=== PATIENT | female | born 1980 | race Two or more races ===

== ENCOUNTER → 2018-08-14 | Outpatient (CLI) | payer OTHER ==
--- NOTE | 2018-08-14 07:38 | MM ---
Reason for exam: screening (asymptomatic). Baseline mammogram. History: Patient is nulliparous. Family history of breast cancer in sister. Physical Findings: Nurse did not find any significant physical abnormalities on exam. MG Screening Mammo w CAD Bilateral CC and MLO view(s) were taken. The breast tissue is extremely dense which could obscure a lesion on mammography. Finding: There are typically benign diffuse/scattered fine calcifications in both breasts. There is no discrete abnormality. These results were verbally communicated with the patient and result sheet given to the patient on 08/14/18. ASSESSMENT: Benign, BI-RAD 2 RECOMMENDATION: Routine screening mammogram of both breasts at age 39.
== END ==
LOC: RADMAMWWP 06:50
PROVIDERS: ATTEND Family Medicine
DX: Z12.31 Encounter for screening mammogram for malignant neoplasm of breast (principal); Z80.3 Family history of malignant neoplasm of breast
CPT/HCPCS: 77067

== ENCOUNTER → 2019-09-19 | Outpatient (CLI) | payer OTHER ==
[2019-09-19 10:15] LABS: Basophils # (A) 0.1 k/uL (0-0.2); Basophils % (A) 1 %; Eosinophils # (A) 0.6 k/uL (0-0.7); Eosinophils % (A) 7 %; HGB 14.4 gm/dL (11.4-16.0); Lymphocytes % (A) 25 %; MCH 27.9 pg (25.0-35.0); MCHC 31.3 g/dL (31.0-37.0); MCV 89.2 fL (80.0-100.0); Mean Platelet Volume 11.9; Monocytes # (A) 0.3 k/uL (0-1.0); Monocytes % (A) 4 %; Neutrophils # (A) 5.1 k/uL (1.3-7.7); Neutrophils % (A) 62 %; Platelet Count 175 k/uL (150-450); RBC 5.16 m/uL (3.80-5.40); RDW 13.5 % (11.5-15.5); WBC 8.2 k/uL (3.8-10.6)
[2019-09-19 17:19] LABS: LDL Cholesterol, Direct 125.2 mg/dL (0.0-129.0)
[2019-09-19 17:21] LABS: African American GFR (CKD) 133.1 (60.0-200.0); Albumin 4.3 g/dL (3.80-4.90); Albumin/Globulin Ratio 1.72 (1.60-3.17); BUN/Creat Ratio 18.33 Ratio (12.00-20.00); Calcium 9.7 mg/dL (8.7-10.3); Globulin 2.5 g/dL (1.6-3.3); Non-African American GFR(CKD) 114.8 (60.0-200.0); Potassium 4.4 mmol/L (3.5-5.5); Total Bilirubin 0.9 mg/dL (0.3-1.2); Total Protein 6.8 g/dL (6.2-8.2)
[2019-09-19 18:06] LABS: Hepatitis A Antibody IgM Non-Reactive (Non-Reactive); Hepatitis B Core IgM Non-Reactive (Non-Reactive); Hepatitis B Surface Antigen Non-Reactive (Non-Reactive); Hepatitis C IgG Antibody Non-Reactive (Non-Reactive)
== END | disposition home or self-care (01) ==
LOC: LABWHC1 09:23
PROVIDERS: ATTEND Family Medicine
DX: Z00.00 Encounter for general adult medical examination without abnormal findings (principal); R74.0 Nonspecific elevation of levels of transaminase and lactic acid dehydrogenase [LDH]; Z13.220 Encounter for screening for lipoid disorders; Z13.228 Encounter for screening for other metabolic disorders
CPT/HCPCS: 36415; 80053; 80074; 82306; 82607; 83721; 84443; 84478; 85025

== ENCOUNTER → 2019-10-10 | Outpatient (CLI) | payer OTHER ==
--- NOTE | 2019-10-10 14:49 | MM ---
Reason for exam: additional evaluation requested from prior study. Last mammogram was performed 1 year and 2 months ago. History: Patient is nulliparous. Family history of breast cancer in sister at age 35. Physical Findings: Nurse Summary: 0.5cm nodule in the left breast at 2 o'clock (nurse TM). MG Diagnostic Mammo w CAD EMERITA Bilateral CC and MLO view(s) were taken. Prior study comparison: August 14, 2018, bilateral MG screening mammo w CAD. The breast tissue is extremely dense which could obscure a lesion on mammography. Finding: There are round, regional calcifications in the upper quadrant of the right breast. There is no discrete abnormality including area of concern in the left breast. These results were verbally communicated with the patient and result sheet given to the patient on 10/10/19. ASSESSMENT: Incomplete: need additional imaging evaluation, BI-RAD 0 RECOMMENDATION: Ultrasound of the left breast.
--- NOTE | 2019-10-10 14:52 | USB ---
Reason for exam: additional evaluation requested from abnormal screening. History: Patient is nulliparous. Family history of breast cancer in sister at age 35. US Breast Limited LT Left limited breast ultrasound including focal area of concern, retroareolar and axilla demonstrates a 10 x 6 x 9mm oval, cystic lesion at 3 o'clock, a 9 x 4 x 8mm oval, cystic lesion at 3 o'clock, a 10 x 8 x 10mm oval, mixed lesion at 3 o'clock for which a cyst aspiration or biopsy is recommended and a 9 x 9 x 12mm oval, hypoechoic lesion at 12 o'clock for which a biopsy is recommended. These results were verbally communicated with the patient and result sheet given to the patient on 10/10/19. ASSESSMENT: Suspicious, BI-RAD 4 RECOMMENDATION: Aspiration and ultrasound core biopsy of the left breast. Called Dr. Ferrell's office with mammographic findings. Biopsy scheduled for 10/18/19 at 10:30. PRELIMINARY REPORT CALLED AND FAXED TO DR. FERRELL ON 10/10/19.
== END | disposition home or self-care (01) ==
LOC: RADMAMWWP 08:36
PROVIDERS: ATTEND Family Medicine
DX: N63.0 Unspecified lump in unspecified breast (principal); R92.8 Other abnormal and inconclusive findings on diagnostic imaging of breast
CPT/HCPCS: 77066

== ENCOUNTER → 2019-10-18 | Day surgery (SDC) | payer OTHER ==
[2019-10-18 10:01] VITALS: BP 160/103; PULSE 58; RESP 16; TEMP 97.5
== END ==
LOC: RADUSWWP 09:03
PROVIDERS: ATTEND Family Medicine
DX: N63.42 Unspecified lump in left breast, subareolar (principal); R92.8 Other abnormal and inconclusive findings on diagnostic imaging of breast; Z53.8 Procedure and treatment not carried out for other reasons

== ENCOUNTER → 2019-10-29 | Day surgery (SDC) | payer OTHER ==
[2019-10-29 12:31] VITALS: RESP 16; TEMP 97.8
[2019-10-29 13:53] VITALS: BP 120/77; PULSE 56
--- NOTE | 2019-10-29 14:01 | USB ---
Ultrasound-guided core biopsy left breast and left breast cyst aspiration. HISTORY: Solid lesion left 12:00 and complex cyst left 3:00 The lesions in question within the left breast were targeted by the undersigned. Procedure was performed by the undersigned. Informed consent was obtained and all of the patients questions were answered. The standard sterile technique was utilized and appropriate local anesthesia was obtained with 1% lidocaine at each location. Ultrasound vacuum assisted device was advanced and multiple core samples were obtained from the solid left 12:00 lesion and sent to pathology for interpretation. Microclip marker was deployed at the site of biopsy. In addition an 18-gauge needle was introduced into the complex cyst at the left 3:00 lesion and 0.5 cc of turbid fluid was aspirated. The cyst is no longer present. Microclip Was also deployed at this site. Post procedural mammogram demonstrates appropriate deployment of radiopaque clip markers. The patient tolerated the procedure well and left the department in stable condition. Pathology results are pending. IMPRESSION: Successful ultrasound core biopsy left 12:00 lesion and successful ultrasound guided cyst aspiration left 3:00 lesion breast with pathology/cytology results pending. Pathology Results: Benign LEFT BREAST SITE A, NEEDLE ASPIRATION: Metaplastic apocrine cells and very degenerated ductal cells in a background of scattered slight inflammation. LEFT BREAST SITE B, GUIDED NEEDLE CORE BIOPSY: Fibroadenoma. Recommendation Follow up mammogram of the left breast in 6 months. JADA
== END ==
LOC: RADUSWWP 12:01
PROVIDERS: ATTEND Family Medicine
DX: D24.2 Benign neoplasm of left breast (principal)
CPT/HCPCS: 88305; 88173; 77065; 76942; 19000; 19083; A4648; J2001

== ENCOUNTER → 2020-06-11 | Outpatient (CLI) | payer OTHER ==
--- NOTE | 2020-06-12 08:59 | MM ---
Reason for exam: follow-up at short interval from prior study. Last mammogram was performed 7 months ago. History: Patient is nulliparous. Family history of breast cancer in sister at age 35. Benign US breast aspiration single LT of the left breast, October 29, 2019. Benign US biopsy breast VAD LT of the left breast, October 29, 2019. Physical Findings: Nurse did not find any significant physical abnormalities on exam. MG Diagnostic Mammo LT w CAD CC and MLO view(s) were taken of the left breast. Prior study comparison: October 29, 2019, left breast MG diagnostic mammo LT wo CAD. October 10, 2019, bilateral MG diagnostic mammo w CAD EMERITA. The breast tissue is heterogeneously dense. This may lower the sensitivity of mammography. Previous mammotome biopsy in the left breast. No significant new findings when compared with previous films. These results were verbally communicated with the patient and result sheet given to the patient on 06/11/20. ASSESSMENT: Benign, BI-RAD 2 RECOMMENDATION: Routine screening mammogram of both breasts in 5 months. Back on schedule for September 2020.
--- NOTE | 2020-06-12 09:06 | USB ---
Reason for exam: follow-up at short interval from prior study. History: Patient is nulliparous. Family history of breast cancer in sister at age 35. Benign US breast aspiration single LT of the left breast, October 29, 2019. Benign US biopsy breast VAD LT of the left breast, October 29, 2019. US Breast LT Left complete breast ultrasound includes all four quadrants, the retroareolar region and axilla. Finding demonstrates a 10 x 9 x 11mm oval, hypoechoic lesion at 12 o'clock previous biopsy site, a 11 x 7 x 11mm oval, cystic lesion at 2 o'clock, a 13 x 5 x 8mm cystic lesion at 3 o'clock and a 8 x 5 x 10mm cystic lesion at 10 o'clock. Innumerable cystic areas visualized. These results were verbally communicated with the patient and result sheet given to the patient on 06/11/20. ASSESSMENT: Benign, BI-RAD 2 RECOMMENDATION: Routine screening mammogram of both breasts in 5 months. Back on schedule for September 2020.
== END | disposition home or self-care (01) ==
LOC: RADMAMWWP 14:29
PROVIDERS: ATTEND Family Medicine
DX: R92.8 Other abnormal and inconclusive findings on diagnostic imaging of breast (principal); R92.2 Inconclusive mammogram; Z98.890 Other specified postprocedural states
CPT/HCPCS: 77065

== ENCOUNTER → 2020-11-18 | Outpatient (CLI) | payer OTHER ==
[2020-11-18 23:54] LABS: Basophils # (A) 0.04 X 10*3/uL (0.00-0.10); Basophils % (A) 0.6 %; Eosinophils # (A) 0.38 X 10*3/uL (0.04-0.35); Eosinophils % (A) 5.4 %; HCT 43.3 % (37.2-46.3); HGB 13.6 g/dL (12.0-15.0); Lymphocytes # (A) 1.85 X 10*3/uL (0.90-5.00); Lymphocytes % (A) 26.2 %; MCH 27.5 pg (27.0-32.0); MCHC 31.4 g/dL (32.0-37.0); MCV 87.7 fL (80.0-97.0); Mean Platelet Volume 13.4 fL (9.5-12.2); Monocytes # (A) 0.53 X 10*3/uL (0.20-1.00); Monocytes % (A) 7.5 %; Neutrophils # (A) 4.23 X 10*3/uL (1.80-7.70); Platelet Count 207 X 10*3/uL (140-440); RBC 4.94 X 10*6/uL (4.10-5.20); WBC 7.05 X 10*3/uL (4.50-10.00)
[2020-11-19 01:00] LABS: Hemoglobin A1C 5.6 % (4.0-6.0)
[2020-11-19 03:41] LABS: African American GFR (CKD) 125.6 (60.0-200.0); Albumin 4.3 g/dL (3.80-4.90); Albumin/Globulin Ratio 1.59 (1.60-3.17); Anion Gap 9.1 mmol/L (4.00-12.00); BUN/Creat Ratio 15.71 Ratio (12.00-20.00); Calcium 9.5 mg/dL (8.7-10.3); Carbon Dioxide 24.9 mmol/L (21.6-31.8); Chol/HDL Ratio 3.57; Globulin 2.7 g/dL (1.6-3.3); LDL Cholesterol,Calculated 97.4 mg/dL (0.0-131.0); Non-African American GFR(CKD) 108.4 (60.0-200.0); Potassium 4.3 mmol/L (3.5-5.5); Total Bilirubin 0.9 mg/dL (0.2-1.2); VLDL Calculation 20.6 mg/dL (5.00-40.00)
== END | disposition home or self-care (01) ==
LOC: LABWHC1 08:47
PROVIDERS: ATTEND Family Medicine
DX: Z00.00 Encounter for general adult medical examination without abnormal findings (principal); Z13.220 Encounter for screening for lipoid disorders; N94.10 Unspecified dyspareunia; R82.998 Other abnormal findings in urine
CPT/HCPCS: 36415; 80053; 80061; 82306; 82607; 83036; 84443; 85025

== ENCOUNTER → 2020-12-17 | Outpatient (CLI) | payer OTHER ==
--- NOTE | 2020-12-18 12:16 | MM ---
Reason for exam: additional evaluation requested from prior study. Last mammogram was performed 6 months ago. History: Patient is nulliparous. Family history of breast cancer in sister at age 35. Benign US breast aspiration single LT of the left breast, October 29, 2019. Benign US biopsy breast VAD LT of the left breast, October 29, 2019. Physical Findings: Nurse did not find any significant physical abnormalities on exam. MG Diagnostic Mammo w CAD EMERITA Bilateral CC and MLO view(s) were taken. CV view(s) were taken of the right breast. Prior study comparison: June 11, 2020, left breast MG diagnostic mammo LT w CAD. October 29, 2019, left breast MG diagnostic mammo LT wo CAD. The breast tissue is heterogeneously dense. This may lower the sensitivity of mammography. Previous mammotome biopsy in the left breast x 2. Underlying partially obscured nodularity on the left. Ultrasound recommended. These results were verbally communicated with the patient and result sheet given to the patient on 12/17/20. ASSESSMENT: Incomplete: need additional imaging evaluation, BI-RAD 0 RECOMMENDATION: Ultrasound of the left breast.
--- NOTE | 2020-12-18 12:18 | USB ---
Reason for exam: additional evaluation requested from abnormal screening. History: Patient is nulliparous. Family history of breast cancer in sister at age 35. Benign US breast aspiration single LT of the left breast, October 29, 2019. Benign US biopsy breast VAD LT of the left breast, October 29, 2019. US Breast LT Left complete breast ultrasound includes all four quadrants, the retroareolar region and axilla. Finding demonstrates a 9 x 7 x 10mm oval, solid lesion at 12 o'clock, benign fibroadenoma previously biospied, a 12 x 7 x 12mm oval, cystic lesion at 1 o'clock and a 13 x 6 x 13mm cystic leison at 2 o'clock. Multiple additional smaller cysts are present. These results were verbally communicated with the patient and result sheet given to the patient on 12/17/20. ASSESSMENT: Probably benign, BI-RAD 3 RECOMMENDATION: Follow-up diagnostic mammogram of both breasts in 1 year. Given family history and the patient's breast complexity.
== END | disposition home or self-care (01) ==
LOC: RADMAMWWP 13:20
PROVIDERS: ATTEND Family Medicine
DX: R92.2 Inconclusive mammogram (principal); Z80.3 Family history of malignant neoplasm of breast; D24.2 Benign neoplasm of left breast; N60.02 Solitary cyst of left breast
CPT/HCPCS: 77066

== ENCOUNTER → 2021-03-19 | Outpatient (CLI) | payer OTHER ==
[~2021-03-19] MED LIST: BAMLANIVIMAB (EUA) 700 MG, ETESEVIMAB (EUA) 1,400 MG in SODIUM CHLORIDE 0.9% 50 ML IVPB NR; SODIUM CHLORIDE 0.9% 50 ML IVPB NR; SODIUM CHLORIDE 0.9% 500 ML 500 ML in EMPTY BAG 1 BAG IV PRN
[2021-03-19 11:10] VITALS: BP 154/97; PULSE 68; RESP 16; TEMP 97.9
== END ==
LOC: PROCWHC3 11:04
PROVIDERS: ATTEND Family Medicine
DX: U07.1 COVID-19 (principal); E66.9 Obesity, unspecified; Z68.28 Body mass index [BMI] 28.0-28.9, adult; Z87.891 Personal history of nicotine dependence
CPT/HCPCS: 96360; J3490; M0245

== ENCOUNTER → 2021-04-08 | Outpatient (CLI) | payer OTHER ==
[2021-04-08 16:14] LABS: Basophils # (A) 0.05 X 10*3/uL (0.00-0.10); Basophils % (A) 0.6 %; Eosinophils # (A) 0.48 X 10*3/uL (0.04-0.35); Eosinophils % (A) 5.6 %; HCT 44.4 % (37.2-46.3); HGB 14.1 g/dL (12.0-15.0); Lymphocytes # (A) 2.04 X 10*3/uL (0.90-5.00); Lymphocytes % (A) 23.9 %; MCH 27.3 pg (27.0-32.0); MCHC 31.8 g/dL (32.0-37.0); Mean Platelet Volume 13.6 fL (9.5-12.2); Monocytes # (A) 0.78 X 10*3/uL (0.20-1.00); Monocytes % (A) 9.1 %; Neutrophils # (A) 5.18 X 10*3/uL (1.80-7.70); Neutrophils % (A) 60.6 %; Platelet Count 199 X 10*3/uL (140-440); RBC 5.16 X 10*6/uL (4.10-5.20); RDW 14.2 % (11.5-14.5); WBC 8.55 X 10*3/uL (4.50-10.00)
[2021-04-08 16:41] LABS: African American GFR (CKD) 132.5 (60.0-200.0); Albumin 4.5 g/dL (3.8-4.9); Albumin/Globulin Ratio 1.8 (1.60-3.17); Anion Gap 12.4 mmol/L (10.00-18.00); BUN/Creat Ratio 15.3 Ratio (12.00-20.00); Blood Urea Nitrogen 8.9 mg/dL (9.0-27.0); C Reactive Protein 0.4 mg/dL (0.00-0.80); Calcium 9.5 mg/dL (8.7-10.3); Carbon Dioxide 22.2 mmol/L (20.0-27.5); Globulin 2.5 g/dL (1.6-3.3); Non-African American GFR(CKD) 114.3 (60.0-200.0); Potassium 4.2 mmol/L (3.5-5.5); Total Bilirubin 0.7 mg/dL (0.30-1.20)
[2021-04-08 17:02] LABS: Erythrocyte Sedimentation Rate 13 mm/Hr (0-20)
== END | disposition home or self-care (01) ==
LOC: LABWHC1 10:55
PROVIDERS: ATTEND Family Medicine
DX: I10 Essential (primary) hypertension (principal); R07.9 Chest pain, unspecified; F43.22 Adjustment disorder with anxiety
CPT/HCPCS: 36415; 80053; 82550; 83615; 84443; 84484; 85025; 85379; 85652; 86140

== ENCOUNTER → 2021-04-13 | Outpatient (CLI) | payer OTHER ==
--- NOTE | 2021-04-13 17:33 | ECHOF ---
Referral Reason:R07.9 chest pain MEASUREMENTS -------- HEIGHT: 154.9 cm WEIGHT: 74.8 kg BP: RVIDd: 2.0 cm (< 3.3) IVSd: 1.0 cm (0.6 - 1.1) LVIDd: 4.3 cm (3.9 - 5.3) LVPWd: 1.2 cm (0.6 - 1.1) IVSs: 1.6 cm LVIDs: 1.7 cm LVPWs: 2.0 cm Ao Diam: 3.2 cm (2.0 - 3.7) AV Cusp: 2.0 cm (1.5 - 2.6) LA Diam: 3.1 cm (2.7 - 3.8) MV EXCURSION: 13.883 mm (> 18.000) MV EF SLOPE: 70 mm/s (70 - 150) EPSS: 0.9 cm MV E J Luis: 0.86 m/s MV DecT: 215 ms MV A J Luis: 0.45 m/s MV E/A Ratio: 1.93 AR PHT: 470 ms RAP: 5.00 mmHg RVSP: 17.25 mmHg FINDINGS -------- This was a technically adequate study. The left ventricular size is normal. Left ventricular wall thickness is normal. Overall left vent ricular systolic function is normal with, an EF between 55 - 60 %. The right ventricle is normal in size. The left atrial size is normal. The right atrial size is normal. Interatrial and interventricular septum intact. The aortic valve is trileaflet and appears structurally normal. There is mild aortic regurgitation. The mitral valve is normal. There is trace mitral regurgitation. The tricuspid valve appears structurally normal. Trace tricuspid regurgitation present. Right love tricular systolic pressure is normal at < 35 mmHg. There is no pulmonic regurgitation present. The aortic root size is normal. Normal inferior vena cava with normal inspiratory collapse consistent with estimated right atrial pre ssure of 5 mmHg. There is no pericardial effusion. CONCLUSIONS -------- 1. The left ventricular size is normal. 2. Left ventricular wall thickness is normal. 3. Overall left ventricular systolic function is normal with, an EF between 55 - 60 %. 4. There is mild aortic regurgitation. 5. There is trace mitral regurgitation. 6. Trace tricuspid regurgitation present. 7. There is no pericardial effusion. [employer]: Lizbeth Payne RDCS
== END | disposition home or self-care (01) ==
LOC: RADECHMAIN 14:26
PROVIDERS: ATTEND Family Medicine
DX: I08.3 Combined rheumatic disorders of mitral, aortic and tricuspid valves (principal)
CPT/HCPCS: 93306

== ENCOUNTER → 2021-08-11 | Outpatient (CLI) | payer OTHER ==
--- NOTE | 2021-08-11 11:13 | XR ---
EXAMINATION TYPE: XR shoulder complete RT DATE OF EXAM: 08/11/2021 COMPARISON: None available INDICATION: Neck strain TECHNIQUE: 3 views of the right shoulder FINDINGS: Slight gapping at the acromioclavicular joint. Tiny inferior glenohumeral osteophytosis. No definite fracture line identified. No humeral head dislocation or significant subluxation. No signs of rotator cuff calcific tendinitis. Maintained acromiohumeral distance. IMPRESSION: No definite right shoulder fracture or dislocation. Incidental findings as described above.
--- NOTE | 2021-08-11 11:17 | XR ---
EXAMINATION TYPE: XR cervical spine comp DATE OF EXAM: 08/11/2021 COMPARISON: None available INDICATION: Neck strain TECHNIQUE: 7 views of the cervical spine FINDINGS: Mild retrolisthesis of C5 over C6. No definite vertebral body collapse or acute displaced fracture. D egenerative changes at C5-6 and C6-7 levels with opposing endplate osteophytosis. Degenerated C5-6 di sc. Multilevel mild uncovertebral osteoarthropathy most evident at C5-6 and C6-7 levels. Bilateral C6-7 n eural foraminal stenosis. Unremarkable prevertebral soft tissue. Grossly unremarkable atlantoaxial ar ticulations. IMPRESSION: Degenerative changes of the cervical spine as detailed above. Further MRI assessment can be considere d.
== END | disposition home or self-care (01) ==
LOC: RADXRMAIN 09:44
PROVIDERS: ATTEND Emergency Medicine
DX: M47.812 Spondylosis without myelopathy or radiculopathy, cervical region (principal)
CPT/HCPCS: 72050

== ENCOUNTER → 2021-08-25 | Outpatient (CLI) | payer OTHER ==
--- NOTE | 2021-08-26 00:46 | MR ---
EXAMINATION TYPE: MR shoulder RT wo con DATE OF EXAM: 08/25/2021 COMPARISON: None HISTORY: Right shoulder pain and limited movement due to work related injury 3-4 weeks ago Multiplanar multi echo imaging of the right shoulder without contrast. There is mild shoulder joint effusion. Subscapularis tendon is intact. Biceps tendon is intact. There is slight thickening and increased signal in the supraspinatus tendon. No evidence of full-thickness tear but there is mild subdeltoid effusion. The AC joint is intact. The glenoid joy appear intact. The infraspinatus tendon is intact. IMPRESSION: Mild shoulder joint effusion and subdeltoid effusion consistent with some synovitis. Supraspinatus te ndon thickening and mild edema consistent with tendinitis. No full-thickness tear.
== END | disposition home or self-care (01) ==
LOC: RADMRIMAIN 21:29
PROVIDERS: ATTEND Emergency Medicine
DX: M25.411 Effusion, right shoulder (principal); M65.811 Other synovitis and tenosynovitis, right shoulder; M77.8 Other enthesopathies, not elsewhere classified; M54.2 Cervicalgia

== ENCOUNTER → 2021-11-30 | Outpatient (CLI) | payer OTHER ==
--- NOTE | 2021-11-30 11:36 | US ---
EXAMINATION TYPE: US transvaginal DATE OF EXAM: 11/30/2021 COMPARISON: NONE CLINICAL HISTORY: N92.4 PERIMENOPAUSAL MENORRHAGIA. Pt states abnormal menses last 3 months TECHNIQUE: Transvaginal (TV). Transvaginal sonographic images of the pelvis were acquired. Date of LMP: 2 weeks ago EXAM MEASUREMENTS: Uterus: 7.7 x 4.4 x 5.1 cm Endometrial Stripe: 0.9 cm Right Ovary: 4.1 x 3.6 x 2.9 cm Left Ovary: 3.1 x 2.6 x 1.8 cm 1. Uterus: Retroverted , fibroid posterior uterine body= 3.1 x 3.1 x 3.4 cm 2. Endometrium: wnl 3. Right Ovary: Small cyst= 2.0 x 1.7 x 2.7 cm 4. Left Ovary: wnl 5. Bilateral Adnexa: wnl 6. Posterior cul-de-sac: wnl IMPRESSION: 1. Uterine fibroid, Partially exophytic. 2. Right ovarian cyst. Follow-up in 6 weeks or following the next normal menstrual period is recommen ded.
== END | disposition home or self-care (01) ==
LOC: RADUSWWP 10:56
PROVIDERS: ATTEND Family Medicine
DX: D25.9 Leiomyoma of uterus, unspecified (principal); N83.201 Unspecified ovarian cyst, right side
CPT/HCPCS: 76830

== ENCOUNTER → 2022-03-17 | Outpatient (CLI) | payer OTHER ==
--- NOTE | 2022-03-17 09:38 | US ---
EXAMINATION TYPE: US transvaginal DATE OF EXAM: 03/17/2022 COMPARISON: NONE CLINICAL HISTORY: 41-year-old female N83.291 OVARIAN CYST RIGHT SIDE. H/o ovarian cysts TECHNIQUE: TV. Transvaginal sonographic images Date of LMP: 02-11-2022, pending this months FINDINGS: EXAM MEASUREMENTS: Uterus: 7.5 x 5.1 x 4.5 cm Endometrial Stripe: 1.6 cm Right Ovary: 3.1 x 1.8 x 2.1 cm Left Ovary: 3.3 x 2.1 x 2.0 cm 1. Uterus: Retroverted 3.1 x 3.3 x 3.5cm right anterior uterine body fibroid. This partially intramu ral and partially subserosal. Previously measured 3.4 cm. 2. Endometrium: Thickening to the upper limits of normal. 3. Right Ovary: follicles seen, wnl 4. Left Ovary: follicles seen, wnl 5. Bilateral Adnexa: wnl 6. Posterior cul-de-sac: wnl IMPRESSION: 1. Retroverted uterus with redemonstrated prominent 3.5 cm right anterior uterine body focal fibroid. This is partially subserosal and partially intramural. Previously measured 3.4 cm. 2. Endometrial stripe thickening to the upper limits of normal at 1.6 cm. Fissure versus findings due to the late secretory phase of the menstrual cycle. 3. Normal follicular change of the ovaries. No dominant cyst is identified.
== END | disposition home or self-care (01) ==
LOC: RADUSWWP 06:47
PROVIDERS: ATTEND Family Medicine
DX: D25.9 Leiomyoma of uterus, unspecified (principal); R93.89 Abnormal findings on diagnostic imaging of other specified body structures
CPT/HCPCS: 76830

== ENCOUNTER → 2023-03-01 | Outpatient (CLI) | payer OTHER ==
--- NOTE | 2023-03-01 08:07 | MM ---
Reason for Exam: Clinical finding. Last mammogram was performed 2 year(s) and 3 month(s) ago. Indicated Problems: Lump or thickening of the right side for 1 Week(s). Patient History: Menarche at age 12. Patient has no children. 10/29/2019, Benign Cyst Aspiration on the left side. 10/29/2019, Benign Core Biopsy on the left side. Sister had breast cancer, age 35. Risk Values: Micheline 5 year model risk: 2.4%. NCI Lifetime model risk: 26.4%. Prior Study Comparison: 08/14/2018 Bilateral Screening Mammogram, [facility]. 10/10/2019 Bilateral Diagnostic Mammogram, [facility]. 10/10/2019 Left Diagnostic Ultrasound, [facility]. 10/29/2019 Left Diagnostic Mammogram, [facility]. 06/11/2020 Left Diagnostic Mammogram, [facility]. 06/11/2020 Left Diagnostic Ultrasound, [facility]. 12/17/2020 Bilateral Diagnostic Mammogram, [facility]. 12/17/2020 Left Diagnostic Ultrasound, [facility] Tissue Density: The breast tissue is extremely dense which could obscure a lesion on mammography. Findings: Analyzed By CAD. No new suspicious mass of the left breast. 2 biopsy clips within the left breast. Benign calcification within the left breast. No suspicious group of calcifications within either breast. There is a partially obscured 4.5 cm oval mass within the upper outer right breast 3 cm from the nipple. This is at site of palpable marker. Overall Assessment: Incomplete: need additional imaging evaluation, BI-RAD 0 Management: Diagnostic Breast Ultrasound of the right breast. A clinical breast exam by your physician is recommended on an annual basis and results should be correlated with mammographic findings. This exam should not preclude additional follow-up of suspicious palpable abnormalities. Results were given to the patient verbally at the time of exam. Note on Micheline scores and lifetime risk: 1. A Micheline score greater than 3% is considered moderate risk. If this is the case, consider specialist referral to assess eligibility for a risk reducing agent. If overall lifetime risk for the development of breast cancer is 20% or higher, the patient may qualify for future screening with alternating mammogram and breast MRI. Electronically signed and approved by: Brian Gates D.O.
--- NOTE | 2023-03-01 08:34 | USB ---
Reason for Exam: Clinical finding. Patient History: Menarche at age 12. Patient has no children. 10/29/2019, Benign Cyst Aspiration on the left side. 10/29/2019, Benign Core Biopsy on the left side. Sister had breast cancer, age 35. Risk Values: Micheline 5 year model risk: 2.4%. NCI Lifetime model risk: 26.4%. Technique: Method: Targeted. Prior Study Comparison: 10/29/2019 Left Diagnostic Mammogram, [facility]. 06/11/2020 Left Diagnostic Mammogram, [facility]. 12/17/2020 Bilateral Diagnostic Mammogram, [facility]. Findings: The upper outer quadrant of the right breast, the axilla of the right breast and the retroareolar of the right breast were scanned. Targeted ultrasound of the right breast from 9-12 o'clock with additional evaluation of the nipple and axillary tail was performed. Thin-walled simple cysts identified within the right breast 3 cm from the nipple at 10:00 measuring 3.5 x 2.3 x 3.2 cm. Additional minimal complex cyst with thin septation identified within the right breast at 12:00 4 cm centimeters from the nipple measuring 1.2 x 0.6 x 1.3 cm. No internal color flow. Overall Assessment: Benign, BI-RAD 2 Management: Screening Mammogram of both breasts in 1 year. Right breast cyst at 10:00 is amenable to ultrasound guided aspiration as clinically indicated. A clinical breast exam by your physician is recommended on an annual basis and results should be correlated with mammographic findings. This exam should not preclude additional follow-up of suspicious palpable abnormalities. Results were given to the patient verbally at the time of exam. Electronically signed and approved by: Brian Gates D.O.
== END | disposition home or self-care (01) ==
LOC: RADMAMWWP 07:31
PROVIDERS: ATTEND Family Medicine
DX: N60.01 Solitary cyst of right breast (principal); N63.11 Unspecified lump in the right breast, upper outer quadrant; R92.343 Mammographic extreme density, bilateral breasts; Z80.3 Family history of malignant neoplasm of breast
CPT/HCPCS: 77062; 77066

== ENCOUNTER → 2023-04-13 | Outpatient (CLI) | payer OTHER ==
[2023-04-13 10:28] VITALS: BP 132/89; PULSE 61; RESP 18; TEMP 97.9
--- NOTE | 2023-04-13 10:37 | P.GSHP ---
History of Present Illness H&P Date: 04/13/23 Chief Complaint: pain right breast Hortensia is a 42 year old [place] female seen in consultation for DR. Ferrell regarding right breast pain. She had a bilateral mammogram on 03-01-23 which led to an ultrasound of the right breast. In the right breast multiple simple appearing cyst were noted. This was BIRAD 2. She complains of pain in her right breast near the nipple area and extending to the upper outer quadrant. It occurs periodically. Last week it occurred approximately 3 days in a row. It does not occur every day. She does not relate anything to make it better or worse. She has had needle biopsies in the left breast with drainage of cyst these were all benign. She can feel a lump in her right breast. This is been present for approximately 2 months. It has not changed in size. She is not complaining of any skin changes or nipple discharge. Her periods are irregular. The swelling does not change with her periods. Caffeine: coffee daily 20 oz nicotine: none stopped 20 years ago chocolate: occasional BCP: none hormones: none Family History: maternal 1/2 sister: breast Hormonal History: menarche: 12 G0 periods irregular since started Surgical History: none Medical History: HTN SociaL History: Nicotine: Negative Alcohol: Occasional Drugs: none - Constitutional Constitutional: Reports sweats, Denies chills, Denies fever - EENT Eyes: denies blurred vision, denies pain Ears: right: tinnitus, deny: decreased hearing Ears, nose, mouth and throat: Reports headache - Breasts Breasts: bilateral: as per HPI - Cardiovascular Cardiovascular: Denies chest pain, Denies shortness of breath - Respiratory Respiratory: Denies cough, Denies 7 - Gastrointestinal Gastrointestinal: Denies abdominal pain, Denies diarrhea, Denies nausea, Denies vomiting - Genitourinary (Female) Genitourinary: Denies dysuria, Denies hematuria - Menstruation Menstruation: Reports as per HPI - Musculoskeletal Musculoskeletal: Denies myalgias - Integumentary Integumentary: Denies pruritus, Denies rash - Neurological Neurological: Denies numbness, Denies weakness - Psychiatric Psychiatric: Denies anxiety, Denies depression - Endocrine Endocrine: Denies fatigue, Denies weight change - Hematologic/Lymphatic Comment: none - Allergic/Immunologic Comment: none Allergic/Immunologic: Reports seasonal allergies Past Medical History Past Medical History: Hypertension History of Any Multi-Drug Resistant Organisms: None Reported Past Surgical History: No Surgical Hx Reported Past Anesthesia/Blood Transfusion Reactions: No Reported Reaction Past Psychological History: No Psychological Hx Reported Smoking Status: Former smoker Past Alcohol Use History: Occasional Past Drug Use History: None Reported Medications and Allergies Home Medications Medication Instructions Recorded Confirmed Type Ibuprofen 800 mg PO DAILY PRN 04/13/23 04/13/23 History lisinopriL [Zestril] 10 mg PO DAILY 04/13/23 04/13/23 History Allergies Allergy/AdvReac Type Severity Reaction Status Date / Time No Known Allergies Allergy Verified 04/13/23 09:57 Surgical - Exam Vital Signs Temp Pulse Resp BP Pulse Ox 97.9 F 61 18 132/89 95 04/13/23 10:00 04/13/23 10:00 04/13/23 10:00 04/13/23 10:00 04/13/23 10:00 - General no distress - Eyes normal ocular movement - Neck trachea midline - Respiratory normal respiratory effort, clear to auscultation - Cardiovascular Heart Sounds: normal: S1, S2 - Integumentary normal turgor - Neurologic no disoriented, no combative - Musculoskeletal normal gait - Psychiatric oriented to time, oriented to person, oriented to place, speech is normal, memory intact Breast Exam: BRA: 36C Inspection: bilateral grade 2 ptosis Ablation: Right breast: Multiple positional exam at approximately the 12 o'clock position towards the upper outer quadrant that appears to be about 2-1/2-3 cm smooth- walled lesion, no other dominant masses or nodules of concern the breasts are very dense Axilla: No adenopathy of concern Left breast: Multiple positional exam dense breast Left axilla: No adenopathy of concern Results Mammogram and ultrasound personally reviewed Assessment and Plan Assessment: Impression: Right breast pain Cyst right breast Plan: Aspiration of cyst right breast After informed consent. Concern in the right breast was prepped using alcohol a 22-gauge needle on a 20 mL syringe was used to aspirate approximately 4 mL of yellow fluid. This is sent for cytology. There appeared to be complete resolution of the cystic lesion. We have discussed lifestyle modification stopping caffeine Patient will call us if the cyst appears to have come back Repeat right breast ultrasound in 6 months with appointment at that time Patient to follow up sooner any questions or concerns CC: DR. Ferrell
== END ==
LOC: WWCWWP 09:51
PROVIDERS: ATTEND Surgery
DX: N60.01 Solitary cyst of right breast (principal); N64.4 Mastodynia; I10 Essential (primary) hypertension; Z87.891 Personal history of nicotine dependence; Z79.899 Other long term (current) drug therapy; Z80.3 Family history of malignant neoplasm of breast
CPT/HCPCS: 87070; 87075; 87205

== ENCOUNTER → 2023-12-01 | Outpatient (CLI) | payer OTHER ==
--- NOTE | 2023-12-01 08:42 | USB ---
Reason for Exam: Clinical finding. Patient History: Menarche at age 12. Patient has no children. 10/29/2019, Benign Cyst Aspiration on the left side. 10/29/2019, Benign Core Biopsy on the left side. Sister had breast cancer, age 35. Risk Values: Micheline 5 year model risk: 2.4%. NCI Lifetime model risk: 26.4%. Prior Study Comparison: 06/11/2020 Left Diagnostic Mammogram, [facility]. 12/17/2020 Bilateral Diagnostic Mammogram, [facility]. 03/01/2023 Bilateral MG 3D diag mammo w/cad EMERITA, [facility]. 03/01/2023 Right US breast limited RT, [facility]. Findings: The upper outer quadrant of the right breast, the upper section of the breast of the left breast, the area of palpable concern of the left breast, the axilla of both breasts and the retroareolar of both breasts were scanned. The right breast demonstrates several simple cysts the largest at the 9:00 position 5 cm from the nipple measuring 1.4 x 0.9 cm. Previously noted large cyst that they have the right 10:00 position has resolved or has been drained. There are no solid right-sided breast masses seen. The left breast also demonstrates multiple simple cysts the largest is noted at the 12:00 position measuring 1.4 x 0.7 cm. Solid appearing mass at the left 11:00 position has been sampled previously. Overall Assessment: Benign, BI-RAD 2 Management: Screening Mammogram of both breasts in 4 months. A clinical breast exam by your physician is recommended on an annual basis and results should be correlated with mammographic findings. This exam should not preclude additional follow-up of suspicious palpable abnormalities. Results were given to the patient verbally at the time of exam. Electronically signed and approved by: Reji Garcia M.D. Radiologis
== END | disposition home or self-care (01) ==
LOC: RADUSWWP 07:47
PROVIDERS: ATTEND Family Medicine
DX: N60.12 Diffuse cystic mastopathy of left breast (principal); N60.11 Diffuse cystic mastopathy of right breast; Z80.3 Family history of malignant neoplasm of breast

== ENCOUNTER 2024-03-17 04:42 | Emergency (ER) | payer OTHER ==
--- NOTE | 2024-03-17 05:02 | ED ---
Abdominal Pain HPI - General Source: patient, RN notes reviewed, old records reviewed Mode of arrival: wheelchair Limitations: no limitations - History of Present Illness MD Complaint: abdominal pain, flank pain -: hour(s) Location: L flank Radiation: back, chest Migration to: L flank Severity: severe Severity scale (1-10): 10 Consistency: constant Improves With: nothing Worsens With: nothing Treatments Prior to Arrival: other <Dario Manning - Last Filed: 03/17/24 06:20> <Dario Prado - Last Filed: 03/17/24 08:00> - General Chief Complaint: Abdominal Pain Stated Complaint: L Abd Pain (Refer to Back) Time Seen by Provider: 03/17/24 04:47 - History of Present Illness Initial Comments: This is a 43-year-old female to the ER today. This patient presents today for evaluation in regards to pain severe left flank pain anterior abdominal pain anterior chest pain back pain which started pretty suddenly after getting off a long flight. Patient took a flight to see her family in the [facility]. Severe pain tonight with history of high blood pressure and severely elevated blood pressure (Dario Manning) - Related Data Home Medications Medication Instructions Recorded Confirmed Ibuprofen 800 mg PO DAILY PRN 04/13/23 04/13/23 lisinopriL [Zestril] 10 mg PO DAILY 04/13/23 04/13/23 Allergies Allergy/AdvReac Type Severity Reaction Status Date / Time No Known Allergies Allergy Verified 03/17/24 04:45 Review of Systems ROS Other: All systems not noted in ROS Statement are negative. <Dario Manning - Last Filed: 03/17/24 06:20> ROS Other: All systems not noted in ROS Statement are negative. <Dario Prado - Last Filed: 03/17/24 08:00> ROS Statement: Those systems with pertinent positive or pertinent negative responses have been documented in the HPI. Past Medical History Past Medical History: Hypertension History of Any Multi-Drug Resistant Organisms: None Reported Past Surgical History: No Surgical Hx Reported Past Anesthesia/Blood Transfusion Reactions: No Reported Reaction Past Psychological History: No Psychological Hx Reported Smoking Status: Former smoker Past Alcohol Use History: Occasional Past Drug Use History: None Reported <Dario Manning - Last Filed: 03/17/24 06:20> General Exam Limitations: no limitations General appearance: alert, in no apparent distress, anxious Head exam: Present: atraumatic, normocephalic, normal inspection Eye exam: Present: normal appearance, PERRL, EOMI. Absent: scleral icterus, conjunctival injection, periorbital swelling ENT exam: Present: normal exam, mucous membranes moist Neck exam: Present: normal inspection. Absent: tenderness, meningismus, lymphadenopathy Respiratory exam: Present: normal lung sounds bilaterally. Absent: respiratory distress, wheezes, rales, rhonchi, stridor Cardiovascular Exam: Present: regular rate, normal rhythm, normal heart sounds. Absent: systolic murmur, diastolic murmur, rubs, gallop, clicks GI/Abdominal exam: Present: soft, normal bowel sounds. Absent: distended, tenderness, guarding, rebound, rigid Extremities exam: Present: normal inspection, full ROM, normal capillary refill. Absent: tenderness, pedal edema, joint swelling, calf tenderness Back exam: Present: normal inspection Neurological exam: Present: alert, oriented X3, CN II-XII intact Psychiatric exam: Present: normal affect, normal mood Skin exam: Present: warm, dry, intact, normal color. Absent: rash <Dario Manning - Last Filed: 03/17/24 06:20> Course <Dario Manning - Last Filed: 03/17/24 06:20> Vital Signs 03/17/24 03/17/24 03/17/24 04:45 06:02 06:42 Temperature 97.8 F Pulse Rate 82 69 67 Respiratory 22 18 16 Rate Blood Pressure 171/130 154/99 147/96 O2 Sat by Pulse 96 99 99 Oximetry 03/17/24 07:29 Temperature Pulse Rate Respiratory 16 Rate Blood Pressure 122/85 O2 Sat by Pulse Oximetry - Reevaluation(s) Reevaluation #1: 03/17/24 06:21 Records reviewed (Dario Manning) Reevaluation #4: Was pt. sent in by a medical professional or institution (, PA, ELECTRICITY TRADING ANALYST, urgent care, hospital, or long-term...) When possible be specific @ -no Did you speak to anyone other than the patient for history (EMS, parent, family, police, friend...)? What history was obtained from this source @ -no Did you review nursing and triage notes (agree or disagree)? Why? @ -agree Are old charts reviewed (outside hosp., previous admission, EMS record, old EKG, old radiological studies, urgent care reports/EKG's, long-term records)? Report findings @ -yes Differential Diagnosis (chest pain, altered mental status, abdominal pain women, abdominal pain men, vaginal bleeding, weakness, fever, dyspnea, syncope, headache, dizziness, GI bleed, back pain, seizure, CVA, palpatations, mental health, musculoskeletal)? @ -prior EKG interpreted by me (3pts min.). @ -yes X-rays interpreted by me (1pt min.). @ -yes negative for acute disease CT interpreted by me (1pt min.). @ -no U/S interpreted by me (1pt. min.). @ -no What testing was considered but not performed or refused? (CT, X-rays, U/S, labs)? Why? @ -none What meds were considered but not given or refused? Why? @ -none Did you discuss the management of the patient with other professionals (professionals i.e. , PA, ELECTRICITY TRADING ANALYST, lab, RT, psych nurse, social media content manager, professor of social work, teacher, radio division officer, rehabilitation case coordinator)? Give summary @ -no Was smoking cessation discussed for >3mins.? @ -no Was critical care preformed (if so, how long)? @ -no Were there social determinants of health that impacted care today? How? (Homelessness, low income, unemployed, alcoholism, drug addiction, transportation, low edu. Level, literacy, decrease access to med. care, mcc, rehab)? @ -none Was there de-escalation of care discussed even if they declined (Discuss DNR or withdrawal of care, Hospice)? DNR status @ -no What co-morbidities impacted this encounter? (DM, HTN, Smoking, COPD, CAD, Cancer, CVA, ARF, Chemo, Hep., AIDS, mental health diagnosis, sleep apnea, morbid obesity)? @ -none Was patient admitted / discharged? Hospital course, mention meds given and route, prescriptions, significant lab abnormalities, going to OR and other pertinent info. @ - Undiagnosed new problem with uncertain prognosis? @ -no Drug Therapy requiring intensive monitoring for toxicity (Heparin, Nitro, Insulin, Cardizem)? @ -no Were any procedures done? @ -no Diagnosis/symptom? @ - Acute, or Chronic, or Acute on Chronic? @ -Acute Uncomplicated (without systemic symptoms) or Complicated (systemic symptoms)? @ -Complicated Side effects of treatment? @ -no Exacerbation, Progression, or Severe Exacerbation? @ -exacerbation Poses a threat to life or bodily function? How? (Chest pain, USA, CT, pneumonia, PE, COPD, DKA, ARF, appy, cholecystitis, CVA, Diverticulitis, Homicidal, Suicidal, threat to staff... and all critical care pts) @ -yes (Dario Manning) Reevaluation #5: Differential Chest Pain: Stable Angina, Unstable Angina, STEMI, NSTEMI Aortic Dissection, Pneumothorax, Musculoskeletal, Esophageal Spasm GERD, Cholecystitis, Pancreatitis, Zoster, this is not meant to be an all-inclusive list. MDM differential abdominal (Dario Manning) Medical Decision Making - Lab Data Result diagrams: 03/17/24 05:12 03/17/24 05:12 <Dario Manning - Last Filed: 03/17/24 06:20> - Lab Data Result diagrams: 03/17/24 05:12 03/17/24 05:12 <Dario Prado - Last Filed: 03/17/24 08:00> - Medical Decision Making Was patient admitted / discharged? Hospital course, mention meds given and route, prescriptions, significant lab abnormalities, going to OR and other pertinent info. @ -Dr. Manning signed out the patient to me at [address] scan was interpreted by myself. CT showed no pulmonary embolism and no acute abnormality of the abdomen pelvis. I went back into the room and reevaluated the patient she was sleeping I woke her up she was feeling considerably better. I palpated her abdomen there was no area of tenderness. Undiagnosed new problem with uncertain prognosis? @ -No Drug Therapy requiring intensive monitoring for toxicity (Heparin, Nitro, Insulin, Cardizem)? @ -No Were any procedures done? @ -No Diagnosis/symptom? @ -Abdominal pain Acute, or Chronic, or Acute on Chronic? @ -Default Uncomplicated (without systemic symptoms) or Complicated (systemic symptoms)? @ -Acute complicated Side effects of treatment? @ -No Exacerbation, Progression, or Severe Exacerbation? @ -No Poses a threat to life or bodily function? How? (Chest pain, USA, CT, pneumonia, PE, COPD, DKA, ARF, appy, cholecystitis, CVA, Diverticulitis, Homicidal, Suicidal, threat to staff... and all critical care pts) @ -No (PradoDario) - Lab Data Lab Results 03/17/24 03/17/24 03/17/24 Range/Units 05:12 05:12 05:12 WBC 13.5 H (3.8-10.6) k/uL RBC 5.12 (3.80-5.40) m/uL Hgb 14.0 (11.4-16.0) gm/dL Hct 44.2 (34.0-46.0) % MCV 86.3 (80.0-100.0) fL MCH 27.3 (25.0-35.0) pg MCHC 31.6 (31.0-37.0) g/dL RDW 13.3 (11.5-15.5) % Plt Count 259 (150-450) k/uL MPV 10.2 Neutrophils % 72 % Lymphocytes % 18 % Monocytes % 4 % Eosinophils % 4 % Basophils % 0 % Neutrophils # 9.7 H (1.3-7.7) k/uL Lymphocytes # 2.4 (1.0-4.8) k/uL Monocytes # 0.6 (0-1.0) k/uL Eosinophils # 0.5 (0-0.7) k/uL Basophils # 0.0 (0-0.2) k/uL D-Dimer (<0.60) mg/L FEU Sodium 136 L (137-145) mmol/L Potassium 3.5 (3.5-5.1) mmol/L Chloride 102 (98-107) mmol/L Carbon Dioxide 27 (22-30) mmol/L Anion Gap 7 mmol/L BUN 11 (7-17) mg/dL Creatinine 0.60 (0.52-1.04) mg/dL Est GFR (CKD-EPI)AfAm >90 (>60 ml/min/1.73 sqM) Est GFR (CKD-EPI)NonAf >90 (>60 ml/min/1.73 sqM) Glucose 104 H (74-99) mg/dL Plasma Lactic Acid Chema 1.2 (0.7-2.0) mmol/L Calcium 9.3 (8.4-10.2) mg/dL Total Bilirubin 0.7 (0.2-1.3) mg/dL AST 41 H (14-36) U/L ALT 34 (4-34) U/L Alkaline Phosphatase 121 (38-126) U/L Total Protein 7.3 (6.3-8.2) g/dL Albumin 4.3 (3.5-5.0) g/dL Amylase 87 (30-110) U/L Lipase 70 (23-300) U/L Urine Color Urine Appearance (Clear) Urine pH (5.0-8.0) Ur Specific [place] (1.001-1.035) Urine Protein (Negative) Urine Glucose (UA) (Negative) Urine Ketones (Negative) Urine Blood (Negative) Urine Nitrite (Negative) Urine Bilirubin (Negative) Urine Urobilinogen (<2.0) mg/dL Ur Leukocyte Esterase (Negative) Urine RBC (0-5) /hpf Urine WBC (0-5) /hpf Ur Squamous Epith Cells (0-4) /hpf Amorphous Sediment (None) /hpf Urine Bacteria (None) /hpf 03/17/24 03/17/24 Range/Units 05:12 06:01 WBC (3.8-10.6) k/uL RBC (3.80-5.40) m/uL Hgb (11.4-16.0) gm/dL Hct (34.0-46.0) % MCV (80.0-100.0) fL MCH (25.0-35.0) pg MCHC (31.0-37.0) g/dL RDW (11.5-15.5) % Plt Count (150-450) k/uL MPV Neutrophils % % Lymphocytes % % Monocytes % % Eosinophils % % Basophils % % Neutrophils # (1.3-7.7) k/uL Lymphocytes # (1.0-4.8) k/uL Monocytes # (0-1.0) k/uL Eosinophils # (0-0.7) k/uL Basophils # (0-0.2) k/uL D-Dimer 0.83 H (<0.60) mg/L FEU Sodium (137-145) mmol/L Potassium (3.5-5.1) mmol/L Chloride (98-107) mmol/L Carbon Dioxide (22-30) mmol/L Anion Gap mmol/L BUN (7-17) mg/dL Creatinine (0.52-1.04) mg/dL Est GFR (CKD-EPI)AfAm (>60 ml/min/1.73 sqM) Est GFR (CKD-EPI)NonAf (>60 ml/min/1.73 sqM) Glucose (74-99) mg/dL Plasma Lactic Acid [place] (0.7-2.0) mmol/L Calcium (8.4-10.2) mg/dL Total Bilirubin (0.2-1.3) mg/dL AST (14-36) U/L ALT (4-34) U/L Alkaline Phosphatase (38-126) U/L Total Protein (6.3-8.2) g/dL Albumin (3.5-5.0) g/dL Amylase (30-110) U/L Lipase (23-300) U/L Urine Color Colorless Urine Appearance Clear (Clear) Urine pH 6.5 (5.0-8.0) Ur Specific [place] 1.034 (1.001-1.035) Urine Protein Negative (Negative) Urine Glucose (UA) Negative (Negative) Urine Ketones Negative (Negative) Urine Blood Negative (Negative) Urine Nitrite Negative (Negative) Urine Bilirubin Negative (Negative) Urine Urobilinogen <2.0 (<2.0) mg/dL Ur Leukocyte Esterase Small H (Negative) Urine RBC 1 (0-5) /hpf Urine WBC 14 H (0-5) /hpf Ur Squamous Epith Cells 3 (0-4) /hpf Amorphous Sediment Rare H (None) /hpf Urine Bacteria Occasional H (None) /hpf Disposition <Dario Manning - Last Filed: 03/17/24 06:20> Is patient prescribed a controlled substance at d/c from ED?: No Time of Disposition: 08:00 <Dario Prado - Last Filed: 03/17/24 08:00> Clinical Impression: Abdominal pain Disposition: HOME SELF-CARE Instructions (If sedation given, give patient instructions): Abdominal Pain (ED) Referrals: Leonela Ferrell MD [Primary Care Provider] - 1-2 days
[2024-03-17] MEDS: KETOROLAC 15 MG/ML 1 ML VIAL IVP STA (05:08)
[2024-03-17] MEDS: ONDANSETRON 4 MG/2 ML VIAL IVP STA (05:14)
[2024-03-17] MEDS: MORPHINE SULFATE 4 MG/ML SYRINGE IVP STA (05:14)
[2024-03-17 05:26] LABS: Basophils % (A) 0 %; Eosinophils # (A) 0.5 k/uL (0-0.7); Eosinophils % (A) 4 %; HCT 44.2 % (34.0-46.0); Lymphocytes # (A) 2.4 k/uL (1.0-4.8); Lymphocytes % (A) 18 %; MCH 27.3 pg (25.0-35.0); MCHC 31.6 g/dL (31.0-37.0); MCV 86.3 fL (80.0-100.0); Mean Platelet Volume 10.2; Monocytes # (A) 0.6 k/uL (0-1.0); Monocytes % (A) 4 %; Neutrophils # (A) 9.7 k/uL (1.3-7.7); Neutrophils % (A) 72 %; Platelet Count 259 k/uL (150-450); RBC 5.12 m/uL (3.80-5.40); RDW 13.3 % (11.5-15.5); WBC 13.5 k/uL (3.8-10.6)
[2024-03-17 05:41] LABS: ALT 34 U/L (4-34); AST 41 U/L (14-36); African American GFR (CKD) >90 (>60 ml/min/1.73 sqM); Albumin 4.3 g/dL (3.5-5.0); Alkaline Phosphatase 121 U/L (38-126); Amylase 87 U/L (30-110); Anion Gap 7 mmol/L; Blood Urea Nitrogen 11 mg/dL (7-17); Calcium 9.3 mg/dL (8.4-10.2); Carbon Dioxide 27 mmol/L (22-30); Chloride 102 mmol/L (98-107); Glucose 104 mg/dL (74-99); Lipase 70 U/L (23-300); Non-African American GFR(CKD) >90 (>60 ml/min/1.73 sqM); Potassium 3.5 mmol/L (3.5-5.1); Sodium 136 mmol/L (137-145); Total Bilirubin 0.7 mg/dL (0.2-1.3); Total Protein 7.3 g/dL (6.3-8.2)
[2024-03-17] MEDS: SODIUM CHLORIDE 0.9% 1,000 ML IV STA (05:50)
[2024-03-17 06:22] LABS: Amorphous Sediment,Urine Rare /hpf; Appearance,Urine Clear (Clear); Bacteria,Urine Occasional /hpf; Bilirubin,Urine Negative (Negative); Blood,Urine Negative (Negative); Color,Urine Colorless; Glucose,Urine (UA) Negative (Negative); Ketones,Urine Negative (Negative); Leukocyte Esterase,Urine Small (Negative); Nitrite,Urine Negative (Negative); PH, Urine 6.5 (5.0-8.0); Protein,Urine Negative (Negative); RBC,Urine 1 /hpf (0-5); Specific Gravity,Urine 1.034 (1.001-1.035); Squamous Epithelial Cell,Urine 3 /hpf (0-4); Urobilinogen,Urine <2.0 mg/dL (<2.0); WBC,Urine 14 /hpf (0-5)
[2024-03-17] MEDS: HYDROmorphone 1 MG/ML 1 ML SYRINGE IVP STA (07:00)
--- NOTE | 2024-03-17 07:38 | CT ---
EXAMINATION TYPE: CT angio chest DATE OF EXAM: 03/17/2024 5:42 AM COMPARISON: None. CLINICAL INDICATION: Female, 43 years old with history of pain, PT presents with left sided abdominal pain. Pt just got off an air plane at midnight came home from a 23 day stay in the [facility]. Pt a lso has nasal congestion TECHNIQUE: CT of the chest is performed on a spiral scan at 2 mm thick sections. Study is performed with intravenous contrast timed for evaluation for pulmonary embolism. This will limit additional po rtions of the evaluation. 3-D MIP images reconstructed by the technologist are reviewed on the compu ter in the coronal and sagittal planes. Contrast used:100ML mL of Isovue 370 with IV Contrast, (none if empty) Oral contrast used: (none if empty) CT DLP: 1247.4 mGycm, Automated exposure control for dose reduction was used. FINDINGS: No persistent filling defects are evident to suggest an acute pulmonary embolism. No mediastinal or hilar adenopathy enlarged by CT criteria is evident. The ascending aorta diameter at the level of the main pulmonary artery is 3.2 cm. The main pulmonary artery diameter at the bifurcation is 3.0 cm. There is a calcification in the anterior lateral right lung base. Image [address] sections were through the upper abdomen. Upper abdomen appears unremarkable. IMPRESSION: 1. No acute pulmonary embolism. 2. No acute pulmonary process. [facility], , 03/17/2024 7:36 AM
--- NOTE | 2024-03-17 07:44 | CT ---
EXAMINATION TYPE: CT abdomen pelvis w con DATE OF EXAM: 03/17/2024 5:45 AM COMPARISON: None. CLINICAL INDICATION: Female, 43 years old with history of pain, PT presents with left sided abdominal pain. Pt just got off an air plane at midnight came home from a 23 day stay in the [facility]. Pt a lso has nasal congestion TECHNIQUE: Axial images were obtained from above the diaphragm to the pubic rami in the axial plane a t 5 mm thick sections. Reconstructed images are reviewed on the computer in the coronal plane. CONTRAST: 100ML mL of Isovue 370. Study performed without Oral Contrast DLP: 1247.4 mGycm, Automated exposure control for dose reduction was used. FINDINGS: Limited CT sections are obtained the lung bases. There is a calcification in the anterior lateral ri ght middle lobe near the lung base. Lung bases are otherwise clear. CT ABDOMEN: There is a small periumbilical fat-containing hernia. No loops of bowel are involved. Liver: Normal Spleen: Normal Pancreas: Normal Adrenal glands: The adrenal glands are normal. Gallbladder: Normal Kidneys: No masses are evident. No hydronephrosis is present. No cysts are present. Delayed images were obtained through the kidneys, which remain unremarkable. Aorta: Normal Inferior vena cava: Normal. CT PELVIS: Loops of bowel within the abdomen and pelvis are normal. There is some nonspecific small bowel loops containing fluid within the pelvis. No obstruction is identified. Consider focal ileus Study is la teral contrast limiting bowel evaluation. Appendix: Normal as visualized. Urinary bladder: Normal. Genitourinary structures: Uterus is normal, follicles on the left ovary. Adnexa appear normal. Osseous structures: No suspicious lytic or sclerotic lesions. IMPRESSION: 1. No suspicious acute process radiographically apparent. 2. There may be a mild focal ileus of small bowel loops within the pelvis. No obstruction evident. 3. Periumbilical hernia containing mesenteric fat. [facility], , 03/17/2024 7:41 AM
[2024-03-17 08:13] VITALS: BP 136/90; PULSE 60; RESP 18; TEMP 98.7
== END 2024-03-17 08:16 | disposition home or self-care (01) ==
LOC: EC 04:42
DX: K42.9 Umbilical hernia without obstruction or gangrene (principal); Z87.891 Personal history of nicotine dependence
CPT/HCPCS: 36415; 85379; 80053; 82150; 83605; 83690; 85025; 81001; 71275; 74177; 99284; 96374; 96375 ×2; 96361; J2270; J2405; J1171; Q9967

== ENCOUNTER → 2024-05-24 | Outpatient (CLI) | payer OTHER ==
--- NOTE | 2024-05-24 13:06 | US ---
EXAMINATION TYPE: US transvaginal DATE OF EXAM: 05/24/2024 COMPARISON: 03/17/22 CLINICAL INDICATION: Female, 43 years old with history of R10.2 PELVIC AND PERINEAL PAIN; pelvic pain . Pt states she had a yeast infection in March. G0. No pelvic surgeries TECHNIQUE: Transvaginal (TV). Doppler imaging: Not performed. FINDINGS: Date of LMP: 04/01/24 EXAM MEASUREMENTS: Uterus: 7.3 x 4.7 x 4.2 cm Endometrial Stripe: 1.3 cm Right Ovary: 4.1 x 2.6 x 2.3 cm Left Ovary: 3.1 x 2.8 x 2.2 cm 1. Uterus: Anteverted large hypoechoic area on rt side of uterus can be compatible with a fibroid measuring 3.8 x 3.8 x 2.5cm 2. Endometrium: wnl 3. Right Ovary: wnl 4. Left Ovary: wnl 5. Bilateral Adnexa: wnl 6. Posterior cul-de-sac: wnl IMPRESSION: 1. Uterine fibroid [facility], , 05/24/2024 1:04 PM
== END | disposition home or self-care (01) ==
LOC: RADUSWWP 12:15
PROVIDERS: ATTEND Family Medicine
DX: D25.9 Leiomyoma of uterus, unspecified (principal); R10.2 Pelvic and perineal pain
CPT/HCPCS: 76830

== ENCOUNTER → 2024-05-30 | Outpatient (CLI) | payer OTHER ==
--- NOTE | 2024-05-30 12:09 | MM ---
Reason for Exam: Screening (asymptomatic). Last mammogram was performed 1 year(s) and 2 month(s) ago. Patient History: Menarche at age 12. Patient has no children. Perimenopausal. 10/29/2019, Benign Cyst Aspiration on the left side. 10/29/2019, Benign Core Biopsy on the left side. Sister had breast cancer, age 35. Risk Values: Micheline 5 year model risk: 2.6%. NCI Lifetime model risk: 26.1%. Prior Study Comparison: 06/11/2020 Left Diagnostic Mammogram, [facility]. 12/17/2020 Bilateral Diagnostic Mammogram, [facility]. 03/01/2023 Bilateral MG 3D diag mammo w/cad EMERITA, [facility]. Tissue Density: The breasts are extremely dense, which lowers the sensitivity of mammography. Findings: Analyzed By CAD. Left breast biopsy clips. Right breast: There is no suspicious group of microcalcifications or new suspicious mass. Left breast: There is no suspicious group of microcalcifications or new suspicious mass. Left breast biopsy clips. Right breast: No finding to correlate with right breast palpable abnormality. There is no suspicious group of microcalcifications or new suspicious mass. Ultrasound for area of palpable abnormality recommended. Left breast: Possible left breast cysts measuring up to 27 mm at 5.7 cm the nipple posterior depth lateral aspect slightly. Overall Assessment: Incomplete: need additional imaging evaluation, BI-RAD 0 Management: Diagnostic Breast Ultrasound of both breasts. [facility] will attempt to contact patient to return for supplemental views and ultrasound if indicated. Patient should continue monthly self-breast exams. A clinical breast exam by your physician is recommended on an annual basis. This exam should not preclude additional follow-up of suspicious palpable abnormalities. Note on Micheline scores and lifetime risk: 1. A Micheline score greater than 3% is considered moderate risk. If this is the case, consider specialist referral to assess eligibility for a risk reducing agent. 2. If overall lifetime risk for the development of breast cancer is 20% or higher, the patient may qualify for future screening with alternating mammogram and breast MRI. [facility], , 05/30/2024 12:04 PM. Electronically signed and approved by: Cuong Kenyon DO
== END | disposition home or self-care (01) ==
LOC: RADMAMWWP 09:37
PROVIDERS: ATTEND Family Medicine
DX: Z12.31 Encounter for screening mammogram for malignant neoplasm of breast (principal); R92.343 Mammographic extreme density, bilateral breasts; Z80.3 Family history of malignant neoplasm of breast
CPT/HCPCS: 77063; 77067

== ENCOUNTER → 2024-06-03 | Outpatient (CLI) | payer OTHER ==
--- NOTE | 2024-06-03 08:17 | USB ---
Reason for Exam: Additional evaluation requested from abnormal screening. Patient History: Menarche at age 12. Patient has no children. Perimenopausal. 10/29/2019, Benign Cyst Aspiration on the left side. 10/29/2019, Benign Core Biopsy on the left side. Sister had breast cancer, age 35. Risk Values: Micheline 5 year model risk: 2.6%. NCI Lifetime model risk: 26.1%. Technique: Method: Targeted. Prior Study Comparison: 12/17/2020 Bilateral Diagnostic Mammogram, [facility]. 03/01/2023 Bilateral MG 3D diag mammo w/cad EMERITA, [facility]. 12/01/2023 Bilateral US breast limited BILAT, [facility]. 05/30/2024 Bilateral MG 3D screening mammo w/cad, [facility]. Findings: The upper outer quadrant of the right breast, the lateral section of the breast of the left breast, the axilla of both breasts and the retroareolar of both breasts were scanned. Targeted ultrasound right breast upper outer quadrant redemonstrates a few thin-walled cysts measuring up to 1.6 cm long axis with thin septa. No suspicious solid lesion. Scanning of the subareolar and axillary Region shows no significant abnormality. Targeted left breast laterally also redemonstrates multiple thin-walled cysts of varying size and shape. At 12:00 position 2 cm distance from nipple there is a persistent avascular slightly hypoechoic 1.2 x 0.9 cm lesion stable from 11:00 position lesion seen on prior ultrasound likely reflecting debris filled cyst. No new suspicious solid mass. Overall Assessment: Benign, BI-RAD 2 Management: Screening Mammogram of both breasts in 1 year. A clinical breast exam by your physician is recommended on an annual basis and results should be correlated with mammographic findings. This exam should not preclude additional follow-up of suspicious palpable abnormalities. Results were given to the patient verbally at the time of exam. Findings consistent with overall fibrocystic change. Management palpable right breast clinically. If pain is localized to a dominant cyst, ultrasound guided aspiration can be performed for therapeutic purposes if needed. [facility], , 06/03/2024 8:14 AM. Electronically signed and approved by: Diogo Gallegos M.D.
== END | disposition home or self-care (01) ==
LOC: RADUSWWP 07:30
PROVIDERS: ATTEND Family Medicine
DX: R92.8 Other abnormal and inconclusive findings on diagnostic imaging of breast (principal); Z80.3 Family history of malignant neoplasm of breast